=== PATIENT | female | born 1930 | race Caucasian/White ===

== ENCOUNTER → 2018-03-27 | Day surgery (SDC) | payer MEDICARE, OTHER ==
[~2018-03-27] MED LIST: ALENDRONATE70 MG PO; AMLODIPINE5 MG PO; ARMIDEX; ARTIFIC TEAR; CALCIUM + D600 MG PO; CENTRUM PO; COLACE100 MG PO; DEXAMETHASON4 MG OR; FASLODEX250 M1 IM; FISH OIL300 MG PO; GABAPENTIN100 MG PO; HYDROCO/APAP1 T10 PO; LEVOTHYROXIN50 MCG PO; LISINOPRIL20 M1 PO; LORTAB 7.5 PO; LORTAB 7.57.5 MG PO; LOVASTATIN40 M1 PO; OMEPRAZOLE20 M1 PO; OXYCOD/APAP1 TA4 PO; PEPCID20 MG OR; PRILOSEC20 MG PO; STOOL SOFTEN1 TAB; TEMAZEPAM15 MG PO; TYLENOL 8 HOUR650 MG PO; ULTRAM50 M1 OR; ZITHROMAX250 MG PO; ZOFRAN ODT4 MG PO; ZOFRAN8 MG OR; ZOLPIDEM5 MG OR
[2018-03-27 11:39] VITALS: BP 124/77
== END | disposition home or self-care (01) ==
LOC: ENDO 06:16 → ORM 08:15 → ENDO 08:15 → ORM 09:00
PROVIDERS: ATTEND Surgery
PROC: 0DJD8ZZ Inspection of Lower Intestinal Tract, Via Natural or Artificial Opening Endoscopic (ICD-10-PCS; principal; 2018-03-27)
DX: R19.7 Diarrhea, unspecified (principal); K57.30 Diverticulosis of large intestine without perforation or abscess without bleeding; I10 Essential (primary) hypertension; E03.9 Hypothyroidism, unspecified; K21.9 Gastro-esophageal reflux disease without esophagitis

== ENCOUNTER 2020-03-31 06:02 | Day surgery (SDC) | payer MEDICARE, OTHER ==
[~2020-03-31 06:02] MED LIST changes: +BL MAGNESIUM250 MG PO; +CYANOCOBAL1000 MCG/M IM; +DELESTROGEN40 MG/ML IM; +MULTI VIT PO; +VIT B-COMPLX100 MG PO
[2020-03-31 07:51] VITALS: BP 119/67
[2020-05-18] MEDS ORDERED: ROPINIROLE1 MG PO (15:49)
== END 2020-03-31 08:20 | disposition home or self-care (01) ==
LOC: ORM 06:02
PROVIDERS: ATTEND Anesthesiology Pain Medicine
DX: M54.2 Cervicalgia (principal); Z01.84 Encounter for antibody response examination

== ENCOUNTER 2020-05-05 05:52 | Day surgery (SDC) | payer MEDICARE, OTHER ==
[~2020-05-05] VITALS: Ht 167.6 cm; Wt 84.4 kg
[2020-05-05 08:01] VITALS: BP 103/57
[2020-05-18] MEDS ORDERED: ROPINIROLE1 MG PO (15:49)
== END 2020-05-05 08:25 | disposition home or self-care (01) ==
LOC: ORM 05:52
PROVIDERS: ATTEND Anesthesiology Pain Medicine
DX: M46.1 Sacroiliitis, not elsewhere classified (principal); Z01.84 Encounter for antibody response examination

== ENCOUNTER 2021-04-13 06:20 | Day surgery (SDC) | payer MEDICARE, OTHER ==
[~2021-04-13 06:20] MED LIST changes: +MEDDOSEPAK PO; +ROPINIROLE1 MG PO
[2021-04-13 11:24] VITALS: BP 114/70
== END 2021-04-13 08:55 | disposition home or self-care (01) ==
LOC: ORM 06:20
PROVIDERS: ATTEND Anesthesiology Pain Medicine
DX: M54.5 Low back pain (principal); M46.1 Sacroiliitis, not elsewhere classified
CPT/HCPCS: 64450 ×2; 64493; 64494; 64495; G0260

== ENCOUNTER 2021-05-11 06:23 | Day surgery (SDC) | payer MEDICARE, OTHER ==
[~2021-05-11] VITALS: Ht 167.6 cm; Wt 80.7 kg
[2021-05-11 09:07] VITALS: BP 136/77
[2021-05-11] MEDS ORDERED: TRAMADOL HCL50 MG PO ×3 (09:18→09:21)
== END 2021-05-11 09:35 | disposition home or self-care (01) ==
LOC: ORM 06:23
PROVIDERS: ATTEND Anesthesiology Pain Medicine
DX: M54.5 Low back pain (principal); M46.1 Sacroiliitis, not elsewhere classified